=== PATIENT | male | born 2000 | race Caucasian/White ===

== ENCOUNTER 2022-02-01 17:06 | Emergency (ER) | payer BC ==
[~2022-02-01] VITALS: Ht 180.3 cm; Wt 63.6 kg
[2022-02-01 17:10] VITALS: BP 118/68
== END 2022-02-01 21:19 | disposition left against medical advice (07) ==
LOC: EMS 17:06
DX: S06.0X1A Concussion with loss of consciousness of 30 minutes or less, initial encounter (principal); R05.9 Cough, unspecified; R09.81 Nasal congestion; W22.8XXA Striking against or struck by other objects, initial encounter; Y93.89 Activity, other specified; Y92.89 Other specified places as the place of occurrence of the external cause; Y99.8 Other external cause status
CPT/HCPCS: 71046; 99283